=== PATIENT | female | born 2000 | race Hispanic/Latino ===

== ENCOUNTER 2022-04-20 19:00 | Emergency (ER) | payer OTHER ==
--- OUTSIDE RECORDS SUMMARY | 2022-04-20 19:04 | XMS REPORT | Continuity of Care Document ---
:2000 Author Organization [facility] t Address [address] [place] [address] Care Team Providers Name Role Phone SELMA CHERRY Primary Care Physician Unavailable SELMA CHERRY Attending Clinician Unavailable Hermila WHSelma VIDAL Attending Clinician CHALO SANON Attending Clinician Unavailable AURELIA MEADE Attending Clinician Unavailable AURELIA MEADE Attending Clinician Unavailable Visit, Ang-Rmchp Nurse Attending Clinician Unavailable Provider, Ang-Rmchp Temp Attending Clinician Unavailable Doctor Unassigned, [place] Attending Clinician Unavailable Lab, Vijay-Rmchp Attending Clinician Unavailable Payers Payer Name Policy Type Policy Number Effective Date Expiration Date Kassie CASTILLO [id number] 2022 00:00:00 [place]ID OF [place] [id number] 2022 2022 00:00:00 00:00:00 Problems Condition Condition Condition Status Onset Resolution Last Treating Co mments Source Name Details Category Date Date Treatment Clinician Date Supervisio Supervisio Disease Active U nivers n of n of 8-18 [place]y of high[place] Chlamydia Chlamydia Disease Active Overview: Univers infection infection 7-13 Formattin i ty of affecting affecting 00:00: [place] Medi jane in first in first might be Bran ch trimester trimester different from the original. Neg aura Gonorrhea Gonorrhea Disease Active Overview: Univers affecting affecting 7-13 Formattin i ty of 00:00: [place] in first in first 00 note Medica l trimester trimester might be Br anch different from the original. Neg aura Obesity in Obesity in Disease Active U nivers 07-11 ity of 00:00: [place] [address] Medical Branch Allergies, Adverse Reactions, Alerts Allergy Allergy Status Severity Reaction(s) Onset Inactive Treating Comm ents Source Name Type Date Date Clinician NO KNOWN Drug Active Univers ALLERGIE Class ity of S [facility] Social History Social Habit Start Date Stop Date Quantity Comments Source ASSERTION 2021-12-10 University of 00:00:00 [place] [facility] History [facility] o f Alcohol Comment [place] [facility] Exposure to 2022-04-06 2022-04-16 Not sure [facility] SARS-CoV-2 00:00:00 10:31:00 [facility] (event) Branch Alcohol intake 2022-03-19 2022-03-19 Lifetime University of 00:00:00 00:00:00 non-drinker [facility] (finding) Branch Tobacco use and 2020-07-11 2020-07-11 Smokeless tobacco Un iversity of exposure 00:00:00 00:00:00 non-user [place] [facility] History [facility] 2020-07-11 2020-07-11 1 University o f Alcohol Frequency 00:00:00 00:00:00 [place] M edical Branch History [facility] 2020-07-11 2020-07-11 99 University o f Alcohol Std 00:00:00 00:00:00 [place] Medical Drinks Branch History [facility] 2020-07-11 2020-07-11 1 University o f Alcohol Binge 00:00:00 00:00:00 [facility] al Branch Sex Assigned At [birth year] Universit y of 00:00:00 00:00:00 [facility] Smoking Status Start Date Stop Date Source Never smoked tobacco [facility] Medications Ordered Filled Start Stop Current Ordering Indication Dosage Frequency Signature Comments Components Source Medication Medication Date Date Medication? Clinician (SIG) Name Name mary beth Yes [id number] Take 2 Univers n 500 mg 7-13 9108 tablets by ity o f tablet 00:00: mouth once [place] [address] Medical Branch [facility] Yes [id number] Take 2 Univers n 500 mg 7-13 9108 tablets by ity o f tablet 00:00: mouth once [place] 00 Medical Branch Yes Take by Univer s vit 7-11 mouth. ity of no.124/iron 11:05: [place] /folic 23 Medical ( Branch VITAMIN ORAL) Yes Take by Univer s vit 7-11 mouth. ity of no.124/iron 11:05: [place] /folic 23 Medical ( Branch VITAMIN ORAL) proMETHazin Yes [id number] 25mg Take 1 Univers e 25 mg 7-11 tablet by ity of tablet 00:00: mouth [place] 00 every 6 Medical (six) Branch hours as needed for Nausea and Vomiting (N/V). proMETHazin Yes [id number] 25mg Take 1 Univers e 25 mg 7-11 tablet by ity of tablet 00:00: mouth [place] 00 every 6 Medical (six) Branch hours as needed for Nausea and Vomiting (N/V). Vital Signs Vital Name Observation Time Observation Value Comments Source Systolic blood 2022-04-16 15:24:00 118 mm[Hg] Univer sity [facility] Diastolic blood 2022-04-16 15:24:00 69 mm[Hg] Unive [facility] Heart rate 2022-04-16 15:24:00 78 /min [facility] Body temperature 2022-04-16 15:24:[address] [facility] Body height 2022-04-16 15:24:00 160 cm [facility] Body weight 2022-04-16 15:24:00 110.768 kg [facility] BMI 2022-04-16 15:24:00 43.26 kg/m2 [facility] Systolic blood 2022-03-19 15:49:00 113 mm[Hg] Univer sity [facility] Diastolic blood 2022-03-19 15:49:00 67 mm[Hg] [facility] 2022-03-19 15:49:00 76 /min [facility] Body temperature 2022-03-19 15:49:[address] [facility] Respiratory rate 2022-03-19 15:49:00 18 /min [facility] Body height 2022-03-19 15:49:00 160 cm [facility] Body weight 2022-03-19 15:49:00 109.459 kg [facility] BMI 2022-03-19 15:49:00 42.75 kg/m2 [facility] Procedures Procedure Date / Time Performed Performing Clinician Sourc e POCT URINALYSIS 2022-04-16 00:00:00 [facility]ma [facility] 2022-03-19 15:50:00 AkinSelma tomas [facility] Encounters Start End Encounter Admission Attending Care Care Encounter Source Date/Time Date/Time Type Type Clinicians Facility Department ID 2022-04-22 2022-04-22 Outpatient P [facility] [id number] Univers 10:15:00 10:15:00 ity [facility] [place] [facility] 2022-04-16 2022-04-16 Outpatient R AKINSIPE, [facility] [id number] Univers 10:30:00 10:33:46 SELMA ity o f [facility] 2022-04-16 2022-04-16 Routine Akinsipe, [facility] [id number] Univers 10:30:00 10:33:46 Selma C INTERNAL COMMUNICATIONS WRITER 350.1.13.10 ity of Visit REGIONAL [id number] Franky as MATERNAL [phone] [facility] & CHILD [address] [place] [address] 2022-03-19 2022-03-19 Routine Akinsipe, [facility] [id number] Univers 10:30:00 10:45:00 Selma C INTERNAL COMMUNICATIONS WRITER 350.1.13.10 ity of Visit REGIONAL [id number] Franky as MATERNAL [phone] [facility] CHILD [address] [place] [address] 2022-03-19 2022-03-19 Outpatient R AKINSIPE, [facility] [id number] Univers 10:30:00 10:30:00 SELMA ity o f [facility] 2022-02-19 2022-02-19 Routine Hermila, [facility] [id number] Univers 10:45:00 11:21:33 Selma Sanchez INTERNAL COMMUNICATIONS WRITER [id number] ity of Visit REGIONAL [id number] Franky as MATERNAL [id number] [facility] CHILD [address] [place] [address] 2022-02-19 2022-02-19 Outpatient R HERMILA, [facility] [id number] Univers 10:45:00 11:21:33 SELMA reddy o cornelia [facility] 2022-02-11 2022-02-11 Outpatient R FAB [facility] [id number] Univers 09:45:00 09:45:00 CHALO [facility] 2022-02-09 2022-02-09 Outpatient Norman SANON [facility] [id number] Univers 10:30:00 10:30:00 CHALO [facility] 2022-02-09 2022-02-09 Outpatient R FAB [facility] [id number] Univers 10:30:00 10:30:00 CHALO [facility] 2022-01-14 2022-01-14 Outpatient R AURELIA MEADE [facility] [id number] Univers 13:15:00 13:55:00 AURELIA MEADE [facility] [place] [facility] 2022-01-14 2022-01-14 Nurse Visit, Ang-Rmchp Nurse [facility] 1.2 .840.114 [id number] Univers 13:15:00 13:30:00 Visit Aurelia Meade INTERNAL COMMUNICATIONS WRITER 350.1.13.10 ity of REGIONAL 4.2.7.2.686 Franky as MATERNAL [phone] [facility] ical & CHILD [address] [place] [address] 2022-01-14 2022-01-14 Case Diana [facility] [id number] Univers 00:00:00 00:00:00 Management Aurelia Mendoza INTERNAL COMMUNICATIONS WRITER 350.1.13.10 ity of REGIONAL 4.2.7.2.686 Franky as MATERNAL [id number] [facility] ical & CHILD [address] [place] [address] 2022-01-14 2022-01-14 Telephone [facility] [id number] Univers 00:00:00 00:00:00 Selma Sanchez INTERNAL COMMUNICATIONS WRITER 350.1.13.10 ity of [facility] 42.7.2.686 Franky as MATERNAL [id number] [facility] CHILD [address] [place] [address] 2022-01-12 2022-01-12 Outpatient R AURELIA MEADE [facility] [id number] Univers 10:00:00 11:37:30 AURELIA MEADE [facility] [place] [facility] 2022-01-12 2022-01-12 Initial Provider, Opal [facility] 1 .2.840.114 [id number] Univers 10:00:00 11:37:30 Aurelia Meade INTERNAL COMMUNICATIONS WRITER 350.1.13.10 ity of Visit [facility] 4.2.7.2.686 Franky as MATERNAL [phone] [facility] & CHILD [address] [place] [address] 2022-01-12 2022-01-12 Outpatient R AURELIA MEADE [facility] [id number] Univers 10:00:00 11:37:30 AURELIA MEADE [facility] 2022-01-12 2022-01-12 Outpatient R AURELIA MEADE [facility] [id number] Univers 09:30:00 11:37:18 AURELIA MEADE [facility] 2022-01-12 2022-01-12 Orders Doctor ROSIO [id number] [id number] Univers 00:00:00 00:00:00 Only Unassigned, DANIEL 350.1.13.10 ity of [place] [facility] 42.7.2.686 Franky as [id number] [address] 2021-09-28 2021-09-28 Refill [facility] [id number] Univers 00:00:00 00:00:00 Selma C INTERNAL COMMUNICATIONS WRITER 350.1.13.10 ity of [facility] 4.2.7.2.686 Franky as MATERNAL [id number] [address] 2021-08-31 2021-08-31 Refill [facility] [id number] Univers 00:00:00 00:00:00 Selma C INTERNAL COMMUNICATIONS WRITER 350.1.13.10 ity of [facility] 4.2.7.2.686 Franky as MATERNAL [id number] [address] 2021-07-11 2021-07-11 Outpatient R AKINSIPE, [facility] [id number] Univers 13:30:00 13:30:00 SELMA [facility] 2021-07-11 2021-07-11 Outpatient R AKINSIPE, [facility] [id number] Univers 13:30:00 13:30:00 SELMA [facility] 2020-10-09 2020-10-09 Office [facility] [id number] Univers 13:02:55 13:17:55 Visit Selma C INTERNAL COMMUNICATIONS WRITER 350.1.13.10 ity of [facility] 4.2.7.2.686 Franky as MATERNAL [id number] [address] 2020-10-09 2020-10-09 Outpatient R AKINSIPE, [facility] [id number] Univers 13:15:00 13:15:00 SELMA [facility] 2020-09-27 2020-09-27 Refill [facility] [id number] Univers 00:00:00 00:00:00 Selma C INTERNAL COMMUNICATIONS WRITER 350.1.13.10 ity of [facility] 4.2.7.2.686 Franky as MATERNAL [id number] [address] 2020-08-08 2020-08-08 Telephone [facility] 1.2.840.114 [id number] Univers 00:00:00 00:00:00 Selma C INTERNAL COMMUNICATIONS WRITER 350.1.13.10 ity of REGIONAL 4.2.7.2.686 Franky as MATERNAL [id number] [facility] & [address] 2020-08-05 2020-08-05 Supply Cataloguer Lab, [facility] 1.2.840. 114 [id number] Univers 11:06:23 11:21:23 Visit Selma Cherry INTERNAL COMMUNICATIONS WRITER 350.1.13. 10 ity of [facility] 4.2.7.2.686 Franky as MATERNAL [id number] [facility] & [address] 2020-08-05 2020-08-05 Outpatient R HERMILA [facility] [id number] Univers 10:30:00 10:30:00 SELMA [facility] 2020-07-30 2020-07-30 Supply Cataloguer Lab, [facility] 1.2.840. 114 [id number] Univers 13:09:22 13:17:28 Visit Selma Cherry INTERNAL COMMUNICATIONS WRITER 350.1.13. 10 ity of [facility] 4.2.7.2.686 Franky as MATERNAL [id number] [address] 2020-07-30 2020-07-30 Outpatient R HERMILA [facility] [id number] Univers 13:15:00 13:15:00 SELMA [facility] 2020-07-25 2020-07-25 Outpatient R HERMILA [facility] [id number] Univers 13:00:00 13:00:00 SELMA [facility] 2020-07-17 2020-07-17 Outpatient R [facility] [id number] Univers 13:30:00 13:30:00 ity [facility] 2020-07-11 2020-07-11 [facility] [id number] Univers 15:27:31 15:57:31 Visit Selma Sanchez INTERNAL COMMUNICATIONS WRITER 350.1.13.10 ity of REGIONAL 4.2.7.2.686 Franky as MATERNAL [id number] Med ical & CHILD [address] [place] [address] 2020-07-11 2020-07-11 Outpatient R HERMILA, [facility] [id number] Univers 15:00:00 15:00:00 SELMA alejandrosuresh o f [facility] 2020-07-11 2020-07-11 Orders Doctor ROSIO 1.2.840.114 [id number] Univers 00:00:00 00:00:00 Only Unassigned, DANIEL 350.1.13.10 ity of [place] [facility] 4.2.7.2.686 Franky as [id number] [address] Results Test Description Test Time Test Comments Results Result Comments Source POCT URINALYSIS W SPECIFIC GRAVITY 2022-04-16 15:33:00 Test Item Value Reference Range Interpretation Comme nts POCT U SP GRAV (test code = 3255) . 1.005-1.025 POCT PH U (test code = 3254) . 5-8 POCT U LEUK EST (test code = 3263) . Negative - Negative POCT U NIT (test code = 3262) . Negative - Negative POCT U PROT (test code = 3259) negative Negative - Negative POCT U GLU (test code = 3256) negative Negative - Negative POCT U KETONE (test code = 3258) . Negative - Negative POCT U UROBILI (test code = 3260) . 0.2-1 POCT U BILI (test code = 3261) . Negative - Negative POCT U BLD (test code = 3257) . Negative - Negative POCT U COLOR (test code = 3266) yellow POCT U APPEAR (test code = 3267) clear [facility] SPECIFIC [id number] 15:50:00 Test Item Value Reference Range Interpretation Comments POCT U SP GRAV (test code = 3255) . 1.005-1.025 POCT PH U (test code = 3254) . 5-8 POCT U LEUK EST (test code = 3263) . Negative - Negative POCT U NIT (test code = 3262) . Negative - Negative POCT U PROT (test code = 3259) 1+ Negative - Negative POCT U GLU (test code = 3256) Neg Negative - Negative POCT U KETONE (test code = 3258) . Negative - Negative POCT U UROBILI (test code = 3260) . 0.2-1 POCT U BILI (test code = 3261) . Negative - Negative POCT U BLD (test code = 3257) . Negative - Negative POCT U COLOR (test code = 3266) . POCT U APPEAR (test code = 3267) . [facility]
--- NOTE | 2022-04-20 21:43 | RAD REPORT ---
EXAM DESCRIPTION: RAD - Foot Right 3 View - 04/20/2022 9:33 pm CLINICAL HISTORY: Pain COMPARISON: LEFT FOOT W COMPARISON dated 02/05/2010 FINDINGS: Transverse fracture is seen at the base of the fifth metatarsal compatible with a Villalba fr acture. No dislocation is evident. Mild soft tissue swelling is seen along the dorsum of the forefoot .
--- NOTE | 2022-04-20 22:15 | ER ---
Nurse's Notes [facility] Name: Brenda Stewart Age: 22 yrs Sex: Female : 2000 Arrival Date: 04/20/2022 Time: 19:56 Bed DIS4 Private MD: Diagnosis: Nondisplaced fracture of fifth metatarsal bone, right foot Presentation: 04/20 20:10 Chief complaint: Patient states: I fell off my porch this morning because I missed a kd3 step and I hurt my right ankle and foot. the pain has just gotten worse and worse through the day. Initial Sepsis Screen: Does the patient meet any 2 criteria? No. Patient's initial sepsis screen is negative. Does the patient have a suspected source of infection? No. Patient's initial sepsis screen is negative. Risk Assessment: Do you want to hurt yourself or someone else? Patient reports no desire to harm self or others. Onset of symptoms was April 20, 2022. 20:10 Method Of Arrival: Wheelchair kd3 20:10 Acuity: HENRY 4 kd3 20:10 Coronavirus screen: Vaccine status: Patient reports receiving the 2nd dose of the covid kd3 vaccine. Ebola Screen: No symptoms or risks identified at this time. Triage Assessment: 20:13 General: Appears in no apparent distress. Behavior is calm, cooperative. Pain: kd3 Complains of pain in dorsum of right foot. Neuro: Level of Consciousness is awake, alert, obeys commands, Oriented to person, place, time, situation. 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 - Social history:: Smoking status: Patient/guardian denies using tobacco. - Family history:: not pertinent. - Hospitalizations: : No recent hospitalization is reported. Assessment: 22:48 Reassessment: Patient is alert, oriented x 3, equal unlabored respirations, skin bb warm/dry/pink. pt seen by this RN at discharge ortho shoe placed to right foot pt verbalized understanding of and agrees to plan of care discharge instructions given pt assisted to exit via wheelchair accompanied by family. Vital Signs: 20:10 BP 126 / 83; Pulse 73; Resp 16; Temp 97.9; Pulse Ox 100% on R/A; Weight 110.68 kg; kd3 Height 5 ft. 3 in. (160.02 cm); Pain 7/10; 20:10 Body Mass Index 43.22 (110.68 kg, 160.02 cm) kd3 ED Course: 19:56 Patient arrived in ED. ja2 20:04 Sergey Hines MD is Attending Physician. rn 20:13 Triage completed. kd3 20:14 Arm band placed on right wrist. kd3 22:13 Yunier Bourgeois MD is Referral Physician. rn 22:48 Patient has correct armband on for positive identification. Adult w/ patient. bb 22:48 No provider procedures requiring assistance completed. Patient did not have IV access bb during this emergency room visit. 22:50 Ortho shoe applied to right foot. bb Administered Medications: No medications were administered Medication: 22:48 VIS not applicable for this client. bb Outcome: 22:14 Discharge ordered by . rn 22:48 Discharged to home via wheelchair, with family. bb 22:48 Condition: stable 22:48 Discharge instructions given to patient, Instructed on discharge instructions, follow up and referral plans. Demonstrated understanding of instructions, follow-up care. 22:50 Patient left the ED. bb Signatures: Myriam Duran RN RN bb Nieto, Roman, MD MD rn Alexander, Jessica ja2 Doucette, Kyli, RN RN 3
--- NOTE | 2022-04-20 22:16 | EDPHYS ---
Physician Documentation [facility] Name: Brenda Stewart Age: 22 yrs Sex: Female : 2000 Arrival Date: 04/20/2022 Time: 19:56 Bed DIS4 Private MD: ED Physician Sergey Hines HPI: 04/20 20:14 This 22 yrs old Female presents to ER via Wheelchair with complaints of Fall rn Injury, foot pain. 20:14 Details of fall: The patient fell from an upright position, while walking. rn 20:14 Onset: The symptoms/episode began/occurred this morning. Associated injuries: The rn patient sustained foot. Severity of symptoms: At their worst the symptoms were mild, in the emergency department the symptoms are unchanged. The patient has not experienced similar symptoms in the past. The patient has not recently seen a physician. Pt reports missed step off porch this AM, hurt right foot. Denies pain to ipsilateral ankle/knee/tib/fib. REports scraped left knee. Ambulatory. Pain got a little worse so came in for eval. . 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 - Social history:: Smoking status: Patient/guardian denies using tobacco. - Family history:: not pertinent. - Hospitalizations: : No recent hospitalization is reported. ROS: 20:14 Constitutional: Negative for fever, chills, and weight loss, Eyes: Negative for injury, rn pain, redness, and discharge, Neck: Negative for injury, pain, and swelling, Back: Negative for injury and pain, MS/Extremity: + right foot pain Skin: + abrasion to left knee Neuro: Negative for headache, weakness, numbness, tingling, and seizure. Exam: 20:14 Constitutional: This is a well developed, well nourished patient who is awake, alert, rn and in no acute distress. Head/Face: Normocephalic, atraumatic. Eyes: Periorbital areas with no swelling, redness, or edema. Skin: + small abrasion anterior to left knee MS/ Extremity: Pulses equal, no cyanosis. Neurovascular intact. Full, normal range of motion. + mild ecchymosis and tenderness righ lateral mid-foot, no open wounds. NO tenderness of either ankle/tiba/fibula/knee. FROM bilateral hips and knees. Neuro: Awake and alert, GCS 15 Vital Signs: 20:10 BP 126 / 83; Pulse 73; Resp 16; Temp 97.9; Pulse Ox 100% on R/A; Weight 110.68 kg; kd3 Height 5 ft. 3 in. (160.02 cm); Pain 7/10; 20:10 Body Mass Index 43.22 (110.68 kg, 160.02 cm) kd3 MDM: 20:04 Patient medically screened. rn 22:13 Differential diagnosis: contusion, fracture, sprain, strain. Data reviewed: vital rn signs, nurses notes, radiologic studies, plain films, and as a result, I will discharge patient. Counseling: I had a detailed discussion with the patient and/or guardian regarding: the historical points, exam findings, and any diagnostic results supporting the discharge/admit diagnosis, radiology results, the need for outpatient follow up, to return to the emergency department if symptoms worsen or persist or if there are any questions or concerns that arise at home. Special discussion: I discussed with the patient/guardian in detail that at this point there is no indication for admission to the hospital. It is understood, however, that if the symptoms persist or worsen the patient needs to return immediately for re-evaluation. Based on the history and exam findings, there is no indication for further emergent testing or inpatient evaluation. I discussed with the patient/guardian the need to see the orthopedic surgeon for further evaluation of the symptoms. 04/20 20:13 Order name: XRAY Foot RIGHT 3 View rn 04/20 21:43 Order name: RAD EDMS 04/20 22:13 Order name: Splint: ortho shoe; Complete Time: 22:48 rn Administered Medications: No medications were administered Disposition Summary: 04/20/22 22:14 Discharge Ordered Location: Home rn Problem: new rn Symptoms: have improved rn Condition: Stable rn Diagnosis - Nondisplaced fracture of fifth metatarsal bone, right foot rn Followup: rn - With: Yunier Bourgeois MD - When: 5 - 6 days - Reason: Recheck today's complaints, Re-evaluation by your physician Discharge Instructions: - Discharge Summary Sheet rn - Metatarsal Fracture rn Forms: - Medication Reconciliation Form rn - Thank You Letter rn - Antibiotic rn research - Prescription Opioid Use rn Signatures: Dispatcher [employer] Sergey Whitten MD MD rn Doucette, Kyli, RN RN kd3
[2022-04-20 23:14] VITALS: BP 126/83; TEMP 97.9; O2SAT 100
== END 2022-04-20 22:50 | disposition home or self-care (01) ==
LOC: ER 19:00
DX: S92.354A Nondisplaced fracture of fifth metatarsal bone, right foot, initial encounter for closed fracture (principal); W10.9XXA Fall (on) (from) unspecified stairs and steps, initial encounter; Y93.9 Activity, unspecified; Y92.018 Other place in single-family (private) house as the place of occurrence of the external cause
CPT/HCPCS: 99283